=== PATIENT | female | born 1940 | race Asian ===

== ENCOUNTER 2019-12-29 13:39 | Outpatient (CLI) | payer OTHER | END 2019-12-29 20:38 | disposition home or self-care (01) | LOC: US 13:39 | DX: I73.9 Peripheral vascular disease, unspecified (principal) ==

== ENCOUNTER 2020-06-06 15:34 | Outpatient (CLI) | payer OTHER | END 2020-06-06 21:38 | disposition home or self-care (01) | LOC: US 15:34 | PROVIDERS: ATTEND Internal Medicine | DX: M79.601 Pain in right arm (principal) ==

== ENCOUNTER 2020-07-08 12:44 | Outpatient (CLI) | payer OTHER ==
[2020-07-08 13:19] LABS: PLATELET COUNT 204 K/uL (152-353)
[2020-07-08 13:27] LABS: POTASSIUM 3.4 mmol/L (3.6-5.2)
== END 2020-07-08 19:39 | disposition home or self-care (01) ==
LOC: LABW 12:44
PROVIDERS: ATTEND Internal Medicine
DX: R05 Cough (principal)
CPT/HCPCS: 36415; 80053; 85027